=== PATIENT | female | born 1990 | race Caucasian/White ===

== ENCOUNTER 2016-10-06 07:12 | Emergency (ER) | payer OTHER ==
[2016-10-06] MEDS ORDERED: LACTATED RINGERS 1,000 ML ONE (07:40)
[2016-10-06 07:49] LABS: ABSOLUTE NEUTROPHIL COUNT 5.7 K/mm3 (1.8-7.7); BASO % 0.4 % (0.2-1.0); EOS # 0.1 (0.0-0.5); EOS % 0.8 % (0.9-2.9); HEMATOCRIT 45.2 % (37.0-47.0); HEMOGLOBIN 15.4 gm/l (12.0-16.0); IMM NEUT% 0.4 % (0-1); LYMPH # 1.4 (1.0-4.8); LYMPH % 17.6 % (15-45); MEAN CELL VOLUME 85.8 fl (81.0-99.0); MEAN CORPUSCULAR HEMOGLOBIN 29.2 pg (27.0-31.0); MEAN CORPUSCULAR HGB CONC 34.1 g/dl (33.0-37.0); MEAN PLATELET VOLUME 11.4 fl (7.4-10.4); MONO # 0.7 (0.0-0.8); MONO % 8.2 % (4-12); NEUT % 72.6 % (43-75); PLATELET COUNT 201 K/mm3 (130-400)
[2016-10-06 08:06] LABS: INR 0.99; PARTIAL THROMBOPLASTIN TIME 27.4 SECONDS (24.5-33.0); PROTHROMBIN TIME 10.4 SECONDS (9.3-11.4)
[2016-10-06 08:08] LABS: ALB/GLOB RATIO 1.4 (>1.0); ALBUMIN 4.2 gm/dL (3.5-5.7); CALCIUM 9.5 mg/dL (8.6-10.3)
[2016-10-06] MEDS ORDERED: KETOROLAC TROMETHAMINE 15 MG/ML VIAL ONE (08:30)
[2016-10-06 10:30] LABS: HCG,QUALITATIVE URINE NEGATIVE
[2016-10-06 10:37] LABS: SPECIFIC GRAVITY 1.015 (1.001-1.030); URINE BILIRUBIN NEGATIVE (NEGATIVE); URINE BLOOD 4+ (NEGATIVE); URINE GLUCOSE (UA) NEGATIVE (NEGATIVE); URINE LEUKOCYTE ESTERASE TRACE (NEGATIVE); URINE NITRITE NEGATIVE (NEGATIVE); URINE PROTEIN 1+ (NEGATIVE); URINE UROBILINOGEN NORMAL (0-1 mg/dl)
[2016-10-06 10:38] LABS: URINE APPEARANCE SL CLOUDY; URINE COLOR RED
[2016-10-06 10:39] LABS: URINE RBC PACKED /hpf; URINE WBC RARE /hpf
[2016-10-06 10:40] LABS: URINE BACTERIA TRACE
== END 2016-10-06 11:24 | disposition home or self-care (01) ==
LOC: ED 07:12
DX: N76.0 Acute vaginitis (principal); N93.9 Abnormal uterine and vaginal bleeding, unspecified
CPT/HCPCS: 81025; 85025; 80053; 85730; 85610; 81001; 99283 ×2; 96374; 96361; J1885; J7120